=== PATIENT | male | born 1965 | race Two or more races ===

== ENCOUNTER → 2024-06-23 | Outpatient (BNVA) | payer MEDICAID, SELFPAY | END | disposition home or self-care (01) | PROVIDERS: PCP Nurse Practitioner Family; Referring Provider Nurse Practitioner Family; Visit Provider Nurse Practitioner Family | DX: E11.65 Type 2 diabetes mellitus with hyperglycemia (principal); Z79.4 Long term (current) use of insulin; M25.521 Pain in right elbow; E78.5 Hyperlipidemia, unspecified | CPT/HCPCS: 99215 ==

== ENCOUNTER → 2024-06-29 | Outpatient (BNVA) | payer MEDICAID, SELFPAY | END | disposition home or self-care (01) | PROVIDERS: PCP Nurse Practitioner Family; Referring Provider Nurse Practitioner Family; Visit Provider Nurse Practitioner Family | DX: E78.5 Hyperlipidemia, unspecified (principal); Z71.2 Person consulting for explanation of examination or test findings | CPT/HCPCS: 99213 ==

== ENCOUNTER → 2024-07-03 | Outpatient (CLI) | payer MEDICAID, SELFPAY ==
--- NOTE | 2024-07-03 14:45 | XR_ITS ---
Examination: Abdomen sonogram, complete Date and time of exam: July 03, 2024 1438 hours INDICATIONS: Lower abdominal pain beginning 6 months ago. Technique: Multiple real-time grayscale transabdominal sonographic images of the abdomen have been obtained. Findings: Normal gallbladder Normal common bile duct 0.4 cm Pancreatic head 2.7 cm Aorta not enlarged Liver 15.7 cm fatty infiltration Normal hepatopedal portal venous flow Patent IVC Right kidney 11.5 x 6.5 x 6.0 cm renal cortex 2.1 cm Left kidney 10.5 x 5.0 x 4.8 cm cortex 2.1 cm Moderate bilateral renal parenchymal scar formation No hydronephrosis Spleen 11.2 cm IMPRESSION: Normal gallbladder Normal common bile duct Fatty liver Moderate bilateral renal parenchymal scar formation
== END | disposition home or self-care (01) ==
PROVIDERS: PCP Nurse Practitioner Family; Referring Provider Nurse Practitioner Family; Visit Provider Nurse Practitioner Family
DX: K76.0 Fatty (change of) liver, not elsewhere classified (principal); N28.89 Other specified disorders of kidney and ureter
CPT/HCPCS: 76700

== ENCOUNTER → 2024-07-17 | Outpatient (BNVA) | payer MEDICAID, SELFPAY | END | disposition home or self-care (01) | PROVIDERS: PCP Nurse Practitioner Family; Referring Provider Nurse Practitioner Family; Visit Provider Nurse Practitioner Family | DX: E11.65 Type 2 diabetes mellitus with hyperglycemia (principal) | CPT/HCPCS: 83036; 99214 ==

== ENCOUNTER 2024-08-18 07:58 | Outpatient (AMB) | payer MEDICAID, SELFPAY ==
[2024-08-18 08:10] VITALS: BP 148/81; PULSE 56; RESP 19; TEMP 36.9; O2SAT 98; BMI 26.9
--- NOTE | 2024-08-18 08:10 | ORTHONT_ITS ---
Vital signs 08/18/24 08:10 Height 1.82 m Height Method Stated Weight 88.989 kg Weight Measurement Method Standing Scale BMI 26.9 BP 148/81 H Blood Pressure Source Automatic Cuff Blood Pressure Location Right Upper Arm Position Sitting Respiration 19 Pulse 56 L Pulse Source Monitor Temp 98.5 F Temp Source Temporal Artery Scan Pulse Oximetry (%) 98 Oxygen Delivery Method Room Air Med/Allergies Allergies & Medications Allergies No Known Allergies Allergy (Verified 08/18/24 08:11) Medication Reconciliation metformin 1,000 mg tablet 1,000 mg PO BID 90 days #180 tabs 05/22/24 [Rx Confir med 08/18/24] flash glucose scanning reader (FreeStyle Pedrito 14 Day [place]) #1 ea 06/23/24 [Rx Confirmed 06/29/24] insulin glargine 100 unit/mL (3 mL) subcutaneous pen (Basaglar KwikPen U-100 Insulin) unit subcut 06/23/24 [History Confirmed 07/17/24] flash glucose scanning reader (FreeStyle Pedrito 2 [place]) #1 ea 07/17/24 [Rx] flash glucose sensor (FreeStyle Pedrito 14 Day Sensor kit) #1 ea 07/17/24 [Rx] flash glucose sensor (FreeStyle Pedrito 2 Sensor kit) #1 ea 07/17/24 [Rx] Office Procedures GNS Level of Care Nursing/Assessment Patient Status: Initial/New Patient Nursing Assessment/Reassesment: Medication Reconciliation, Update PMH in EMR and Vital Signs Coordination of Care: Complex Care/Chronic Disease 5 or more, Education Complex Pt/Fam, Consent,records obtained, informed consent and Staff clarify orders New Patient Charge New Patient Point Assignment: 1099 New Patient Point Charge: RECONSTRUCTIVE SURGEON Level 3 ([id number]) CO Intake Visit Data Collection Reason for Visit:: LEFT KNEE PAIN -POST TKA Manager Of Environmental Services Required: No PCP or OBGYN visit in last 3 months: Yes Do You Feel Safe at Home: Yes Questionairres Past Medical History Past Medical History Have you ever been diagnosed with any of the following: Neurological Problems Seizures: No Cardiology Problems Congestive Heart Failure: No Edema: Yes (left leg) 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) Hypertension: Yes Respiratory Problems Chronic Obstructive Pulmonary Disease (COPD): No Asthma: No Pneumonia: Yes (Covid) Pulmonary Embolism: Yes Genital/Urinary Problems Renal Disease: No Kidney Stones: Yes Musculoskeletal Problems Arthritis: Yes Endocrine Problems Diabetes Mellitus Type 1: No Diabetes Mellitus Type 2: Yes Blood Problems Sickle Cell Disease: No Other Problems Hospitalization: Yes (Sepsis, covid pna) Shingles: No Blood Transfusions: No Blood Transfusion Reaction: No Anesthesia Reactions: No MRSA: No Chicken Pox: No Cancer: No Surgical History Total Knee Replacement: Yes (LEFT TOTAL KNEE REPLACEMENT ) Subjective Visit Visit for: new patient and knee Immunization / Flu Flu Vaccine in the Last 12 Months: No Flu Vaccine Exclusion Criteria: No Exclusion Criteria History of Present Illness Chief complaint: LEFT KNEE PAIN-POST TKA Personal History Occupation: WORKS IN NURSERY Hobbies: FISHING AND HUNTING Red flag PMH: none BMI Counceling provided: Yes Pain Pain level (0-10): 5 Pain duration: INTERMITTENT Pain quality: aching Pain timing: night, increases with activity and stairs Associated signs & symptoms: numbness Ambulatory data Ambulatory device: none Treatments Improvement with previous injections: No Improvement with PT: No Improvement with NSAIDS: no Review of Systems Review of Systems: All systems negative unless otherwise noted in HPI.
== END 2024-08-18 09:47 | disposition home or self-care (01) ==
PROVIDERS: PCP Nurse Practitioner Family; Referring Provider Nurse Practitioner Family; Supervising Provider Orthopaedic Surgery Adult Reconstructive Orthopaedic Surgery; Visit Provider Orthopaedic Surgery Adult Reconstructive Orthopaedic Surgery
DX: M25.562 Pain in left knee (principal); Z96.652 Presence of left artificial knee joint
CPT/HCPCS: 99203; G0463

== ENCOUNTER → 2024-08-31 | Outpatient (BNVA) | payer MEDICAID, SELFPAY | END | disposition home or self-care (01) | PROVIDERS: PCP Nurse Practitioner Family; Referring Provider Nurse Practitioner Family; Visit Provider Nurse Practitioner Family | DX: E11.8 Type 2 diabetes mellitus with unspecified complications (principal); Z79.4 Long term (current) use of insulin; Z71.2 Person consulting for explanation of examination or test findings; E78.5 Hyperlipidemia, unspecified; I82.409 Acute embolism and thrombosis of unspecified deep veins of unspecified lower extremity; I10 Essential (primary) hypertension | CPT/HCPCS: 99212; G0463 ==

== ENCOUNTER → 2025-03-23 | Outpatient (CLI) | payer MEDICAID, SELFPAY ==
--- NOTE | 2025-03-23 13:15 | XR_ITS ---
Examination: MRI lumbar spine without contrast Date and time of exam: March 23, 2025 1403 hours Compared to mammograms dating to January 25, 2010 INDICATIONS: Patient fell 12 years ago with injury of the lower back, lower back pain worse the last year radiating down the legs, left leg especially Technique: Multiple MRI axial and sagittal sections lumbar spine. Sagittal T2-weighted images, TR 3500, TE 118 T1 weighted transverse sections, TR 688 T8.5, T2-weighted sagittal sections T1 weighted sagittal sections TR 621, TE 30 T2 axial sections, TR 4, 190, TE 84. Findings: Adequate alignment lumbar vertebral bodies No lumbar fracture Adequate marrow signal lumbar vertebral bodies. Moderate disc narrowing L5-S1 Diffuse lumbar disc desiccation No spondylolisthesis L5-S1 5 mm left paracentral disc bulge displacing the left S1 nerve root L4-L5 2 mm right paracentral disc bulge The cephalad levels unremarkable IMPRESSION: L5-S1 5 mm left paracentral disc bulge displacing the left S1 nerve root
== END | disposition home or self-care (01) ==
LOC: SMRI 12:30
PROVIDERS: PCP Nurse Practitioner Family; Referring Provider Nurse Practitioner Family; Visit Provider Nurse Practitioner Family
DX: M51.370 Other intervertebral disc degeneration, lumbosacral region with discogenic back pain only (principal)
CPT/HCPCS: 72148